=== PATIENT | male | born 1960 | race Caucasian/White ===

== ENCOUNTER 2017-02-25 08:31 | Emergency (ER) | payer OTHER ==
[~2017-02-25] VITALS: Ht 177.8 cm; Wt 105.7 kg
[2017-02-25 09:33] LABS: BASOPHIL COUNT 0.1 K/uL (0-0.1); EOSINOPHIL (%) 1.2 % (0-5); EOSINOPHIL COUNT 0.1 K/uL (0-0.3); HEMATOCRIT 44.8 % (38.0-50.0); IMMATURE GRANULOCYTE (%) 0.5 % (0.0-0.7); IMMATURE GRANULOCYTE COUNT 0.1 K/uL; INSTRUMENT ABS NEUTROPHIL CT 7.2 K/uL; LYMPHOCYTE COUNT 2.4 K/uL (1.0-2.8); MCH 28.3 PG (29.0-34.0); MCHC 33.3 G/DL (30.0-36.0); MCV 85.2 FL (86-99); MEAN PLAT.VOLUME 8.5 uM^3 (9.0-12.4); MONOCYTE (%) 7.4 % (3-12); MONOCYTE COUNT 0.8 K/uL (0-0.8); NEUTROPHIL (%) 67.5 % (45-76); NEUTROPHIL COUNT 7.2 K/uL (1.8-6.4); PLATELET COUNT 314 K/uL (156-360); RBC DIS.WIDTH-CV 12.5 % (11.8-14.6); RBC DIS.WIDTH-SD 38.5 % (39-53); RED BLOOD COUNT 5.26 M/uL (4.00-5.50); WHITE BLOOD COUNT 10.6 K/uL (4.1-10.2)
[2017-02-25 09:39] LABS: CHLORIDE 105 mEq/L (99-109); SODIUM 138 mEq/L (136-147)
[2017-02-25 09:40] LABS: GLUCOSE 109 mg/dL (70-99)
[2017-02-25 09:42] LABS: ANION GAP 10 MEQ/L (2-14)
[2017-02-25 09:44] LABS: GFR ESTIMATE (CALCULATED) > 59 mL/min/
[2017-02-25 09:45] LABS: UREA NITROGEN (BUN) 16 mg/dL (9-23)
[2017-02-25] MEDS ORDERED: LISINOPRIL40 MG PO (10:56)
[2017-02-25] MEDS ORDERED: LIPITOR80 MG PO (10:57)
[2017-02-25] MEDS ORDERED: LEXAPRO10 MG PO (10:58)
[2017-02-25] MEDS ORDERED: LOPRESSOR50 MG PO (10:59)
[2017-02-25] MEDS ORDERED: ALLEGRA60 MG PO (11:00)
[2017-02-25] MEDS ORDERED: FLONASE16 G1 BOTH NARES (11:01)
[2017-02-25] MEDS ORDERED: PERCOCET 5/31 TABLET PO (11:46)
[2017-02-25 12:10] VITALS: BP 157/94
== END 2017-02-25 14:18 | disposition home or self-care (01) ==
LOC: EME 08:31
PROVIDERS: Emergency Medicine
DX: S82.031A Displaced transverse fracture of right patella, initial encounter for closed fracture (principal); S82.61XA Displaced fracture of lateral malleolus of right fibula, initial encounter for closed fracture; V78.4XXA Person boarding or alighting from bus injured in noncollision transport accident, initial encounter; Y99.0 Civilian activity done for income or pay; I10 Essential (primary) hypertension; E78.5 Hyperlipidemia, unspecified
CPT/HCPCS: 73564; 73610; 80048; 85025; 85610; 99281; 99284